=== PATIENT | female | born 1995 | race Two or more races ===

== ENCOUNTER 2017-10-15 12:06 | Emergency (ER) | payer SELFPAY ==
[~2017-10-15] VITALS: Ht 154.9 cm; Wt 51.4 kg
[2017-10-15 12:46] VITALS: BP 125/92
== END 2017-10-15 13:59 | disposition home or self-care (01) ==
LOC: ER 12:06
DX: G89.29 Other chronic pain (principal); R10.30 Lower abdominal pain, unspecified; K58.8 Other irritable bowel syndrome
CPT/HCPCS: 74176; 81025

== ENCOUNTER 2023-07-28 22:54 | Emergency (ER) | payer SELFPAY ==
[~2023-07-28] VITALS: Ht 154.9 cm; Wt 52.7 kg
[2023-07-28 23:08] VITALS: BP 129/81; PULSE 90; RESP 18; TEMP 97.7; O2SAT 97
[2023-07-28 23:29] LABS: Basophils # (auto) 0.1 10 ^3/uL (0-0.2); Eosinophils # (auto) 0 10 ^3/uL (0-0.8); Eosinophils % (auto) 0.6 % (0.0-7.0); Hematocrit 39.5 % (36.0-46.0); Hemoglobin 12.7 g/dL (12.2-16.2); Lymphocytes # (auto) 2.9 10 ^3/uL (0.4-5.4); Lymphocytes % (auto) 38.3 % (10.0-50.0); Mean Corpuscular Hgb Conc. 32.2 g/dL (32.0-36.0); Mean Corpuscular Volume 77.7 fL (80.0-100.0); Monocytes # (auto) 0.6 10 ^3/uL (0-1.3); Monocytes % (auto) 8.3 % (0.0-12.0); Neutrophils # (auto) 3.9 10 ^3/uL (1.6-8.6); Neutrophils % (auto) 51.8 % (37.0-80.0); Nucleated Red Blood Cells % 0.1 %; Red Blood Cells 5.08 10^6/uL (4.0-5.20); Red Cell Distribution Width 16.9 % (11.8-14.3); White Blood Cell 7.5 10^3/uL (4.4-10.8)
[2023-07-28 23:39] LABS: Urine Bacteria FEW /hpf (None Seen); Urine Blood Negative /uL (Negative); Urine Clarity HAZY (Clear); Urine Color Colorless (Yellow); Urine Mucus FEW (None Seen); Urine Protein, UAD TRACE (Negative); Urine Specific Gravity 1.017 (1.001-1.035); Urine Urobilinogen Normal (Negative); Urine WBC 13 /hpf (0 - 5)
[2023-07-28 23:46] LABS: Alanine Aminotransferase 12 U/L (7-40); Alkaline Phosphatase 67 U/L (46-116); Anion Gap 9 (5-15); Aspartate Aminotransferase 13 U/L (13-40); BUN/Creatinine Ratio 10.5 (10.0-20.0); Bilirubin, Total 0.3 mg/dL (0.2-1.0); Blood Urea Nitrogen 10 mg/dL (9-23); Calcium 10.1 mg/dL (8.5-10.1); Carbon Dioxide 26 mmol/L (20-30); Chloride 104 mmol/L (98-107); Glucose 94 mg/dL (74-106); Potassium 3.8 mmol/L (3.5-5.1); Sodium 139 mmol/L (136-145); Total Protein 7.8 g/dL (5.7-8.2)
[2023-07-29] MEDS ORDERED: NITR-52 PO (01:35)
[2023-07-29 13:43] LABS: Lipase 38 U/L (12-53)
== END 2023-07-29 01:54 | disposition home or self-care (01) ==
LOC: ER 22:54
DX: N39.0 Urinary tract infection, site not specified (principal); Z32.02 Encounter for pregnancy test, result negative
CPT/HCPCS: 36415; 80053; 81001; 81025; 83690; 85025

== ENCOUNTER 2023-08-11 18:15 | Emergency (ER) | payer SELFPAY ==
[~2023-08-11] VITALS: Ht 154.9 cm; Wt 54.5 kg
[~2023-08-11 18:15] MED LIST: NITR-52 PO
[2023-08-11] MEDS ORDERED: ONDANSETRON ODT 4 MG TAB PO ONE (18:45)
[2023-08-11 20:46] LABS: Urine Bacteria MOD /hpf (None Seen); Urine Blood 3+ /uL (Negative); Urine Clarity Clear (Clear); Urine Color Colorless (Yellow); Urine Protein, UAD Negative (Negative); Urine Urobilinogen Normal (Negative); Urine WBC 8 /hpf (0 - 5)
[2023-08-11] MEDS ORDERED: CIPR-173 PO (20:50)
[2023-08-11] MEDS ORDERED: ZOFR4T PO (20:50)
[2023-08-12 00:28] VITALS: BP 116/76; PULSE 59; RESP 20; TEMP 98.1; O2SAT 100
== END 2023-08-12 00:38 | disposition home or self-care (01) ==
LOC: ER 18:15
DX: N39.0 Urinary tract infection, site not specified (principal); R11.0 Nausea; F15.90 Other stimulant use, unspecified, uncomplicated; Z79.899 Other long term (current) drug therapy
CPT/HCPCS: 81001; 81025; 99283; Q0162